=== PATIENT | female | born 1950 | race Caucasian/White ===

== ENCOUNTER 2025-08-14 05:49 | Day surgery (SDC) | payer MEDICARE ==
[2025-08-07 15:16] VITALS: BMI 21.0
[~2025-08-14 05:49] MED LIST: EPINEPHrine 0.3 MG in Ophthalmic Irrigation Solution 500 ML IRR SCH
[2025-08-14] MEDS ORDERED: Cyclopentolate 1% Opth Drop 2 ML BOT ONE (06:09)
[2025-08-14 06:47] LABS: #Basophils 0.06 10x3/uL (0.0-0.2); #Eosinophils 0.13 10x3/uL (0.0-0.7); #Monocytes 0.52 10x3/uL (0.11-0.59); #Neutrophils 3.28 10x3/uL (1.40-6.50); %Basophils 1.0 % (0.0-1.0); %Eosinophils 2.1 % (0.0-10.0); %Lymphocytes 35.0 % (21.0-51.0); %Monocytes 8.5 % (0.0-10.0); %Neutrophils 53.2 % (42.0-75.0); Hematocrit 46.6 % (36.0-47.0); Hemoglobin 14.9 g/dL (12.0-16.0); Mean Corpuscular Hemoglobin 29.2 pg (27.0-31.0); Mean Corpuscular Volume 91.4 fL (78.0-98.0); Platelet Count 223 10x3/uL (130-400); Red Blood Cell (RBC) Count 5.10 mill/uL (4.20-5.40); White Blood Cell (WBC) Count 6.15 10x3/uL (4.8-10.8)
[2025-08-14] MEDS ORDERED: Lidocaine 1% PF 5 ML VIAL ONE ×2 (06:57→07:52)
[2025-08-14 07:06] LABS: Anion Gap 13 mmol/L (10-20); BUN (Urea Nitrogen) 11 mg/dL (9.8-20.1); Calc. Creatinine Clearance 65 mL/min (70-130); Calcium 9.5 mg/dL (7.8-10.44); Carbon Dioxide 25 mmol/L (23-31); Chloride 106 mmol/L (98-107); Glucose 91 mg/dL (83-110); Potassium 4.0 mmol/L (3.5-5.1); Sodium 140 mmol/L (136-145)
[2025-08-14] MEDS ORDERED: Lidocaine 4% PF 5 ML AMP ONE (07:52)
[2025-08-14] MEDS ORDERED: CEFAZOLIN 1 GM VIAL ONE (07:52)
[2025-08-14] MEDS ORDERED: PROPOFOL 200 MG/20 ML VIAL ONE (07:52)
== END 2025-08-14 09:00 | disposition home or self-care (01) ==
LOC: SDC 05:49
PROVIDERS: ATTEND Ophthalmology Retina Specialist
PROC: 08T53ZZ Resection of Left Vitreous, Percutaneous Approach (ICD-10-PCS; principal; 2025-08-14)
PROC: 08NF3ZZ Release Left Retina, Percutaneous Approach (ICD-10-PCS; 2025-08-14)
DX: H35.372 Puckering of macula, left eye (principal); Z98.41 Cataract extraction status, right eye; Z90.710 Acquired absence of both cervix and uterus; Z90.89 Acquired absence of other organs; Z91.040 Latex allergy status
CPT/HCPCS: 67041; 80048; 85025; J0166; J2250; J3010; 93005; 93010; J0690; J2003; J2704; J3301; J3490